=== PATIENT | female | born 1970 | race Caucasian/White ===

== ENCOUNTER → 2017-04-06 | Outpatient (CLI) | payer BC ==
[~2017-04-06] MED LIST: ANASTROZOLE PO; HYZAAR PO; PAROXETINE PO
--- NOTE | 2017-04-13 15:47 | Diagnostic Imaging Report ---
#[id number] - MGDXBIL #BILATERAL DIGITAL DIAGNOSTIC MAMMOGRAM WITH CAD WITH LATEROMEDIAL MAGNIFICATION: 04/06/2017 Comparison is made to exams dated: 09/13/2016 ultrasound, 09/13/2016 mammogram, 02/01/2016 mammogram, 01/27/2015 mammogram, 01/20/2015 mammogram and 11/05/2013 mammogram - [facility]. Current study contains 9 films. There are scattered fibroglandular elements in both breasts. Current study was also evaluated with a Computer Aided Detection (CAD) system. There are benign calcifications in both breasts. There also are post operative findings in the left breast from a prior lumpectomy at the 3 o'clock position posteriorly. Progressive calcification within and adjacent to the post operative density appears benign and maintenance representative of calcification associated with fat necrosis. No significant masses, calcifications, or other findings are seen in either breast. There has been no significant interval change. IMPRESSION: BENIGN There is no mammographic evidence of malignancy. A 1 year diagnostic mammogram is recommended. The patient will be notified by letter of the results. Nick Simmons Jr., D.O. cw/:04/13/2017 13:19:23 [employer]: Lynn DUEÑAS(Boom)(Sarah), [facility] letter sent: Compared to Prior B9 Mammogram BI-RADS: 2 Benign
== END ==
LOC: MAMMO 11:33
PROVIDERS: ATTEND Internal Medicine Hematology & Oncology
DX: N64.59 Other signs and symptoms in breast (principal)
CPT/HCPCS: G0204

== ENCOUNTER 2017-10-05 10:55 | Outpatient (RCR) | payer BC | END 2017-10-06 | LOC: PT 10:55 | PROVIDERS: ATTEND Podiatrist Foot & Ankle Surgery | DX: M25.372 Other instability, left ankle (principal); M25.371 Other instability, right ankle; M25.472 Effusion, left ankle; M25.471 Effusion, right ankle ==

== ENCOUNTER 2017-10-30 16:42 | Outpatient (RCR) | payer BC | END 2017-11-06 | LOC: PT 16:42 | PROVIDERS: ATTEND Podiatrist Foot & Ankle Surgery | DX: M25.572 Pain in left ankle and joints of left foot (principal); M25.571 Pain in right ankle and joints of right foot; M25.672 Stiffness of left ankle, not elsewhere classified; M25.671 Stiffness of right ankle, not elsewhere classified; M62.81 Muscle weakness (generalized); M24.872 Other specific joint derangements of left ankle, not elsewhere classified; M24.871 Other specific joint derangements of right ankle, not elsewhere classified ==

== ENCOUNTER → 2018-07-29 | Outpatient (CLI) | payer BC | LOC: LAB 11:53 | PROVIDERS: ATTEND Ophthalmology Uveitis and Ocular Inflammatory Disease | DX: H20.8 Other iridocyclitis (principal) | CPT/HCPCS: 36415; 82550; 86762; 86765; 86787 ==

== ENCOUNTER → 2019-07-11 | Outpatient (CLI) | payer BC ==
[2019-07-11 10:09] LABS: CHOL/HDL RATIO 5.6 (3.0-3.6)
--- NOTE | 2019-07-11 18:18 | Myoview Stress Test ---
DATE OF STUDY: 07/11/2019 09:54:00 Stress Test - Treadmill ONLY STUDY PERFORMED: Nuclear stress report. PROCEDURE TITLE: Rest/stress single isotope SPECT imaging with exercise stress and gated SPECT imaging. INDICATION: Chest pain. PROCEDURE IN DETAIL: The patient performed treadmill exercise using a Venkata protocol exercising for 6 minutes 31 seconds to stage II and completing estimated workload of 7 metabolic equivalents (METs). The heart rate was 80 beats per minute at rest and increased to 153 beats per minute at peak exercise, which was 89% of the maximum predicted heart rate. The resting blood pressure was 158/83 mmHg and increased to 188/113 mmHg, which is a normal response. The resting electrocardiogram demonstrated normal sinus rhythm. There were no ST-segment changes suggestive of myocardial ischemia. Myocardial perfusion imaging was performed at rest following the injection of 11 mCi of tetrofosmin. At peak exercise, 30.1 millicuries of tetrofosmin was injected and exercise was continued for 1 minute. Gated post-stress tomographic imaging was performed. FINDINGS: The overall quality of study is fair. Left ventricular cavity is noted to be normal size on the rest and stress studies. SPECT images demonstrate homogeneous tracer distribution throughout the myocardium. Gated SPECT imaging reveals normal myocardial thickening and wall motion. Left ventricular cavity was noted to be normal size on the rest and stress studies. SPECT images demonstrate a small mild perfusion defect in the mid anterior wall at stress that is not present on rest. Gated SPECT imaging reveals normal myocardial thickening and wall motion. The left ventricular ejection fraction was calculated to be 60%. IMPRESSION: Myocardial perfusion imaging is abnormal. There is a small mild area of ischemia in the mid anterior wall, cannot rule out attenuation artifact. Overall, left ventricular systolic function was normal without regional wall motion abnormalities. Peyton Granados MD ABS/MODL /[id number]
== END ==
LOC: NM 09:31
PROVIDERS: ATTEND Internal Medicine Interventional Cardiology
DX: I20.8 Other forms of angina pectoris (principal)
CPT/HCPCS: 36415; 78452; 80061; 83036; 93017; A9502

== ENCOUNTER → 2019-10-27 | Outpatient (CLI) | payer BC ==
[~2019-10-27] MED LIST changes: +IOPAMIDOL 370 MG/ML 200 ML INFUS..BTL INJ ONE; +LORAZEPAM INJ 2 MG/ML VIAL ONE; +METOPROLOL TARTRATE 25 MG TAB ONE; +METOPROLOL TARTRATE INJ 1 MG/ML VIAL ONE; +NITROGLYCERIN 0.4 MG SUBL ONE; +SODIUM CHLORIDE 0.9% 100 ML ONE
[2019-10-27 08:33] LABS: BLOOD UREA NITROGEN 12 mg/dL (7-26); BUN/CREATININE RATIO 16 (6-25); CREATININE, SERUM 0.77 mg/dL (0.57-1.11); EST GLOMERULAR FILTRATION RATE > 60 ML/MIN (60-)
--- NOTE | 2019-10-27 16:42 | Diagnostic Imaging Report ---
EXAM: CALCIUM SCORE AND CORONARY CTA INDICATION: ^[id number] ^[id number] ^CAD/ABN SPECT COMPARISON: None. TECHNIQUE: Multi-detector CT technology was employed (64 MDCT Milabra). Minimal slice thickness was performed following the intravenous administration of contrast material. The patient was premedicated with 75 mg PO and 5 mg i.v. metoprolol and 0.4 mg sublingual nitroglycerin for heart rate control and coronary dilation, respectively. In addition, 2 mg of Ativan were administered due to patient anxiety. IV CONTRAST: 100 mL of Isovue-370 ORAL CONTRAST: None COMPLICATIONS: None RADIATION DOSE: Total DLP: 1385 mGy*cm Estimated effective dose: (DLP x 0.015 x size factor) mSv CTDIvol has been reviewed. It is below the limits set by the Radiation Protocol Committee (RPC). For optimization of anatomic evaluation, multiplanar reconstruction, maximum intensity projections, and advanced 3-D off-line postprocessing were performed on a dedicated stand-alone workstation under the direct supervision of the interpreting physician. QUALITY: Fair due to motion artifact. FINDINGS: CALCIUM SCORE: The observed Agatston Calcium Score of 0 is at percentile 50% for subjects of the same age and gender who are free of clinical cardiovascular disease and treated diabetes. The Agatston score for each vessel is as follows: LM: 0 LAD: 0 LCx: 0 RCA: 0 DISTRIBUTION OF THE CALCIFIED PLAQUES: No identifiable calcified plaques in the coronary arteries. CORONARY ANATOMY: There is normal origin of the coronary arteries. Left Main Coronary Artery: The left main is normal sized vessel that bifurcates into the LAD and circumflex. There is no evidence of atherosclerotic changes or stenotic disease. Left Anterior Descending Coronary Artery: The LAD is a normal size vessel that wraps around the apex. It gives rise to 2 acute diagonal branches. There is no evidence of atherosclerotic changes or stenotic disease. Left Circumflex Coronary Artery: The LCX is a normal size vessel, which is non-dominant. It gives rise to 1 obtuse marginal branches. There is no evidence of atherosclerotic changes or stenotic disease. Right Coronary Artery: The RCA is a normal size vessel, which is dominant. It gives rise to a conus branch, AV yarely branch, and 2 acute marginal branches. In its distal segment it bifurcates into the PDA and PV branch. Limited evaluation of the distal RCA. Otherwise, no evidence of atherosclerotic changes or stenotic disease. CARDIAC MORPHOLOGY AND FUNCTION: The right and left atria and ventricles are morphologically normal. LIMITED CHEST: Limited views of the visualized chest show no abnormality within chest wall and mediastinum. No mediastinal lymphadenopathy. The visualized lungs are clear. The visualized portions of the ascending and descending thoracic aorta are of normal size. Mild calcifications of the aortic valve. Small hiatal hernia. LIMITED ABDOMEN: Limited images of the upper abdomen reveal no abnormalities of the visualized organs. BONES: No acute osseous abnormalities. IMPRESSION: 1. Total Agatston Calcium Score: 0 that corresponds to percentile 50%, representing no identifiable calcified plaques in the coronary arteries. 2. Normal coronary anatomy without evidence of atherosclerotic changes or stenotic disease. CAD-RANJIT: 0 Reference: [email or web address] 3. Small hiatal hernia. Signed by: Dr. Cathy Adams M.D. on 10/27/2019 4:38 PM
== END ==
LOC: CT 07:13
PROVIDERS: ATTEND Internal Medicine Interventional Cardiology
DX: I25.10 Atherosclerotic heart disease of native coronary artery without angina pectoris (principal); R94.39 Abnormal result of other cardiovascular function study; K44.9 Diaphragmatic hernia without obstruction or gangrene
CPT/HCPCS: 36415; 75574; 82565; 84520; J2060; J7050; Q9967

== ENCOUNTER → 2020-04-06 | Outpatient (CLI) | payer OTHER ==
[~2020-04-06] MED LIST changes: -IOPAMIDOL 370 MG/ML 200 ML INFUS..BTL INJ ONE; -LORAZEPAM INJ 2 MG/ML VIAL ONE; -METOPROLOL TARTRATE 25 MG TAB ONE; -METOPROLOL TARTRATE INJ 1 MG/ML VIAL ONE; -NITROGLYCERIN 0.4 MG SUBL ONE; -SODIUM CHLORIDE 0.9% 100 ML ONE
== END ==
LOC: US 07:40
PROVIDERS: ATTEND Family Medicine
DX: R74.8 Abnormal levels of other serum enzymes (principal)
CPT/HCPCS: 76705

== ENCOUNTER → 2020-04-06 | Outpatient (CLI) | payer OTHER ==
[~2020-04-06] MED LIST changes: +COVID-19 VACC, MRNA(MODERNA)/PF 100 MCG/0.5 ML VIAL IM ONE
== END ==
LOC: VACCPMC 00:26
DX: Z23 Encounter for immunization (principal); Z20.828 Contact with and (suspected) exposure to other viral communicable diseases

== ENCOUNTER → 2020-05-12 | Outpatient (CLI) | payer OTHER | END | DRG 951 | LOC: VACCPMC 10:00 | DX: Z23 Encounter for immunization (principal); Z20.822 Contact with and (suspected) exposure to COVID-19 | CPT/HCPCS: 0012A; 91301 ==

== ENCOUNTER 2020-11-29 17:42 | Emergency (ER) | payer OTHER ==
[~2020-11-29] VITALS: Ht 170.2 cm; Wt 115.7 kg
[~2020-11-29 17:42] MED LIST changes: -COVID-19 VACC, MRNA(MODERNA)/PF 100 MCG/0.5 ML VIAL IM ONE
[2020-11-29] MEDS ORDERED: FLUOXETINE DR90 MG (18:26)
[2020-11-29] MEDS ORDERED: LOSARTAN POTASS25 MG PO (18:26)
[2020-11-29] MEDS ORDERED: HYDROCHLOROTHIA25 MG PO (18:26)
[2020-11-29] MEDS ORDERED: HYDROCODONE/APAP 5MG-325MG TAB PO ONE (19:30)
[2020-11-29] MEDS ORDERED: CYCLOBENZAPRINE HCL 10 MG TAB PO ONE (19:30)
[2020-11-29] MEDS ORDERED: KETOROLAC TROMETHAMINE 60 MG/2 ML VIAL ONE (19:34)
[2020-11-29] MEDS ORDERED: CYCLOBENZAPRINE10 MG PO (19:34)
[2020-11-29] MEDS ORDERED: NAPROSYN500 MG PO (19:35)
[2020-11-29] MEDS ORDERED: HYDROCODON-ACE1 EA12 PO (19:36)
[2020-11-29 20:24] VITALS: BP 138/72
== END 2020-11-29 19:45 | disposition home or self-care (01) ==
LOC: FSED 19:03
DX: M54.5 Low back pain (principal); M62.830 Muscle spasm of back; I10 Essential (primary) hypertension; Z79.899 Other long term (current) drug therapy
CPT/HCPCS: 99283; J1885

== ENCOUNTER 2021-04-16 14:40 | Emergency (ER) | payer OTHER ==
[~2021-04-16] VITALS: Ht 170.2 cm; Wt 120.8 kg
[~2021-04-16 14:40] MED LIST changes: +CYCLOBENZAPRINE10 MG PO; +FLUOXETINE DR90 MG; +HYDROCHLOROTHIA25 MG PO; +HYDROCODON-ACE1 EA12 PO; +LOSARTAN POTASS25 MG PO; +NAPROSYN500 MG PO
[2021-04-16] MEDS ORDERED: AZITHROMYCIN250 MG PO (16:36)
[2021-04-16] MEDS ORDERED: PEPCID20 MG PO (16:36)
[2021-04-16] MEDS ORDERED: BROMFED DM COU118 ML PO (16:36)
[2021-04-16] MEDS ORDERED: VENTOLIN HFA18 GM INH (16:40)
[2021-04-16] MEDS ORDERED: KETOROLAC TROMETHAMINE 30 MG/ML VIAL ONE (16:47)
[2021-04-16] MEDS ORDERED: KETOROLAC TROMETHAMINE 30 MG/ML VIAL IM STA (16:50)
== END 2021-04-16 16:48 | disposition home or self-care (01) ==
LOC: FSED 14:49
DX: J40 Bronchitis, not specified as acute or chronic (principal); R07.9 Chest pain, unspecified; K76.0 Fatty (change of) liver, not elsewhere classified; I10 Essential (primary) hypertension
CPT/HCPCS: 71045; 93005; 96372; 99283; J1885

== ENCOUNTER → 2021-04-22 | Outpatient (CLI) | payer BC ==
[~2021-04-22] MED LIST changes: +AZITHROMYCIN250 MG PO; +BROMFED DM COU118 ML PO; +PEPCID20 MG PO; +VENTOLIN HFA18 GM INH
== END ==
LOC: US 08:23
PROVIDERS: ATTEND Family Medicine
DX: R10.11 Right upper quadrant pain (principal); K76.0 Fatty (change of) liver, not elsewhere classified
CPT/HCPCS: 76700